=== PATIENT | male | born 1945 | race African-American/Black ===

== ENCOUNTER 2016-12-21 10:53 | Emergency (ER) | payer MEDICARE, OTHER ==
[~2016-12-21] VITALS: Ht 175.3 cm; Wt 78.0 kg
[~2016-12-21 10:53] MED LIST: ACETAMINOPHEN500 M3 ORAL; ASPIRIN; ASPIRIN325 M1 GT; AVODART0.5 MG ORAL; BACITRACIN1 APPLIC TOPIC; BACLOFEN10 MG ORAL; BENAZEPRIL HCL20 MG ORAL; BUPRENORPHINE HC8 MG SL; BUSPIRONE HCL15 MG ORAL; CATAPRES0.2 MG ORAL; CEPHALEXIN500 MG PO; CYCLOBENZAPRINE10 MG ORAL; DILAUDID2 MG ORAL; DIOVAN HCT 3201 EAC1 PO; DIOVAN HCT 3201 EACH ORAL; ENDOCET 10-3251 EACH PO; ERYTHROMYCIN3.5 GM BOTH EYES; FLOMAX0.4 MG ORAL; FLOMAX0.4 MG PO; GABAPENTIN800 MG PO; HYDRALAZINE HCL50 MG PO; HYDROCHLOROTHIA25 MG ORAL; KEFLEX500 MG ORAL; LIDOCREAM5 GM TP; LORAZEPAM0.5 MG ORAL; LOSARTAN POTAS100 MG ORAL; MAALOX SUSPENS355 ML ORAL; METHADONE HCL10 MG PO; METOPROLOL SUCC25 MG ORAL; MIRALAX17 G2 ORAL; MIRTAZAPINE45 MG ORAL; NEXIUM40 MG ORAL; NORCO 5/3251 TAB ORAL; NORVASC10 MG PO; OXYCODONE-ACET1 EACH PO; OXYCONTIN10 MG ORAL; OXYCONTIN20 MG ORAL; PERCOCET 10-321 EACH ORAL; PLAVIX75 MG ORAL; PROTONIX40 MG PO; SUCRALFATE1 GM PO; TRILEPTAL150 MG PO; ULTRAM50 MG ORAL; VALIUM5 MG ORAL; VITAMIN D250000 UNI1 PO; ZITHROMAX250 MG ORAL; ZOFRAN ODT4 MG ORAL; [UNRECOGNIZED DRUG - REMARK]
[2016-12-21] MEDS ORDERED: Ketorolac 30mg Inj IM ONE (11:30)
[2016-12-21 11:45] VITALS: BP 144/78
--- NOTE | 2016-12-21 14:04 | Emergency Room Report ---
History of Present Illness General Chief Complaint: Pain Source: Patient Present Illness HPI 71-year-old male presents to ED complaining of left-sided rib pain for 5 days. Denies recent trauma. States he is chronic history of pain to this area has been here multiple times in the past. Usually receives a Toradol shot and states the pain gets better. Patient states the pain as a 7/10, sharp, nonradiating. No other aggravating or relieving factors. Denies chest pain or shortness of breath. Denies any other associated symptoms Allergies: Coded Allergies: SULFA (SULFONAMIDE ANTIBIOTICS) (Unverified Allergy, Unknown, 07/27/12) MORPHINE (Verified Adverse Reaction, Intermediate, 07/27/12) EFFECTS PROSTATE Patient History Past Medical History: CHF, CVA/TIA Past Surgical History: none Pertinent Family History: none Social History: Denies: alcohol use, drug use, smoking Immunizations: UTD Reviewed Nursing Documentation: PMH: Agreed, PSxH: Agreed Nursing Documentation-PMH Hx Cardiac Problems: Yes - CHF, CHRONIC PAIN Hx Hypertension: Yes - left knee and foot surgery and pinch nerve Hx Cancer: Yes - PROSTATE Hx Gastrointestinal Problems: Yes 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 Review of Systems All Other Systems: negative except mentioned in HPI Physical Exam Vital Signs Date Time Temp Pulse Resp B/P Pulse Ox O2 Delivery O2 Flow Rate FiO2 12/21/16 11:07 97.9 70 20 155/84 96 Room Air Sp02 EP Interpretation: reviewed, normal General Appearance: no apparent distress, alert, GCS 15, non-toxic Head: normocephalic Eyes: bilateral eye PERRL, bilateral eye normal inspection ENT: normal ENT inspection Neck: normal inspection Respiratory: lungs clear, normal breath sounds, speaking full sentences, other - L sided rib pain Cardiovascular #1: regular rate, rhythm, no edema Gastrointestinal: normal inspection Rectal: deferred Genitourinary: no CVA tenderness Musculoskeletal: normal inspection Neurologic: alert, oriented x3, responsive, motor strength/tone normal, sensory intact, speech normal Psychiatric: normal inspection Skin: normal inspection Lymphatic: normal inspection Medical Decision Making Diagnostic Impression: Primary Impression: Chronic pain Qualified Codes: G89.29 - Other chronic pain ER Course 71-year-old male presents to ED complaining of left-sided rib pain. History of pain to this area Differential-chronic pain, muscle strain, opioid dependence Patient placed on stretcher. After initial history and physical I reviewed EMR. Patient has been here multiple times in the past for similar pain. Patient had been given Toradol with symptoms improving. Patient asked to be can have something stronger than Toradol today. Patient does have a pain management physician. I explained to the patient that he is under contract with that pain management physician and cannot receive narcotics elsewhere. Patient agrees to the Toradol Diagnosis-chronic pain Stable and discharged to home. Followup with PMD. Return to ED if symptoms recur or worsen Last Vital Signs Date Time Temp Pulse Resp B/P Pulse Ox O2 Delivery O2 Flow Rate FiO2 12/21/16 11:45 98.0 67 18 144/78 95 Room Air Status: improved Disposition: HOME, SELF-CARE Condition: Stable Referrals: NOT CHOSEN IPA/,REFERRING Patient Instructions: Chronic Pain STAN RIVERA M.D. Dec 21, 2016 14:04
== END 2016-12-21 11:47 | disposition home or self-care (01) ==
LOC: EMR 11:28
DX: G89.29 Other chronic pain (principal); Z88.6 Allergy status to analgesic agent; Z88.2 Allergy status to sulfonamides; Z86.73 Personal history of transient ischemic attack (TIA), and cerebral infarction without residual deficits; I50.9 Heart failure, unspecified; Z85.46 Personal history of malignant neoplasm of prostate; I10 Essential (primary) hypertension
CPT/HCPCS: 96372; 99282; J1885; 99281

== ENCOUNTER 2018-06-15 18:50 | Emergency (ER) | payer MEDICARE, OTHER ==
[~2018-06-15] VITALS: Ht 175.3 cm; Wt 78.5 kg
--- NOTE | 2018-06-15 19:30 | Emergency Room Report ---
History of Present Illness General Chief Complaint: Eye Problems Source: Patient, Medical Record Present Illness HPI Patient presents with eye itching and discomfort with d/c for 2 days. Some crusting in morning. No change in vision. Had been treated with erythromycin in the past and requesting this again. Denies glaucoma. Also with cough. No sig productive. No wheezing. Never smoker. Denies chest pain, NV. 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 Review of Systems Constitutional: Denies: fever Eye: Reports: see HPI ENT: Denies: throat pain, throat swelling Respiratory: Reports: see HPI Cardiovascular: Reports: see HPI Gastrointestinal: Reports: see HPI Skin: Denies: rash Neurological: Denies: headache Physical Exam Vital Signs Date Time Temp Pulse Resp B/P (MAP) Pulse Ox O2 Delivery O2 Flow Rate FiO2 06/15/18 19:04 98.2 95 18 167/87 95 Room Air 98.2 Sp02 EP Interpretation: reviewed, normal General Appearance: well appearing, no apparent distress Head: normocephalic, atraumatic Eyes: bilateral eye PERRL, bilateral eye lid inflammation, bilateral eye Scleral Injection, bilateral eye other ENT: hearing grossly normal, normal voice Neck: full range of motion, supple Respiratory: chest non-tender, lungs clear, normal breath sounds, no respiratory distress, speaking full sentences Cardiovascular #1: normal peripheral pulses Cardiovascular #2: 2+ radial (R) Gastrointestinal: normal inspection Musculoskeletal: no calf tenderness Neurologic: alert, normal gait, grossly normal Psychiatric: mood/affect normal Skin: no rash Medical Decision Making Diagnostic Impression: Primary Impression: Conjunctivitis Qualified Codes: H10.33 - Unspecified acute conjunctivitis, bilateral Additional Impression: Bronchitis ER Course Patient with eye irritation and crusting. DDx: viral vs bacterial conjunctivitis. Requesting antibiotics. Will give Rx. Also cough. Suggests concomitant etiology. Doubt pneumonia based on VS and exam. Will treat with cough syrup. Told to return if not doing better and to follow with his doctor. Patient stable for outpatient observation and treatment. Last Vital Signs Date Time Temp Pulse Resp B/P (MAP) Pulse Ox O2 Delivery O2 Flow Rate FiO2 06/15/18 19:44 98.2 95 16 167/87 95 Room Air Status: unchanged Disposition: HOME, SELF-CARE Condition: Stable Scripts Guaifenesin/Dextromethorphan (Guaifenesin Dm Syrup) 5 Ml Syrup 1 TSP ORAL Q6HR PRN for For Cough, #118 ML 0 Refills Prov: Jarod Gonzalez M.D. 06/15/18 Erythromycin Base (Erythromycin) 1 Gm Oint...g. 1 APPLIC OP Q6HR for 7 Days, GM Prov: Jarod Gonzalez M.D. 06/15/18 Jarod Gonzalez M.D. Jun 15, 2018 19:30
[2018-06-15] MEDS ORDERED: ERYTHROMYCIN1 G1 OP (19:33)
[2018-06-15] MEDS ORDERED: GUAIFENESIN DM118 M1 ORAL (19:33)
[2018-06-15 19:36] VITALS: BP 167/87
[2018-06-15 19:44] VITALS: BP 167/87
== END 2018-06-15 19:44 | disposition home or self-care (01) ==
LOC: EMR 19:43
DX: H10.33 Unspecified acute conjunctivitis, bilateral (principal); J40 Bronchitis, not specified as acute or chronic; I11.0 Hypertensive heart disease with heart failure; I50.9 Heart failure, unspecified; I69.354 Hemiplegia and hemiparesis following cerebral infarction affecting left non-dominant side; Z85.46 Personal history of malignant neoplasm of prostate
CPT/HCPCS: 99283

== ENCOUNTER 2018-07-05 18:07 | Emergency (ER) | payer MEDICARE, OTHER ==
[~2018-07-05] VITALS: Ht 175.3 cm; Wt 78.0 kg
[~2018-07-05 18:07] MED LIST changes: +ERYTHROMYCIN1 G1 OP; +GUAIFENESIN DM118 M1 ORAL
--- NOTE | 2018-07-05 19:17 | Emergency Room Report ---
History of Present Illness General Chief Complaint: General Complaint Source: Patient, Medical Record Present Illness HPI 73-year-old male presents to the emergency department complaining of noting black stools this a.m. Patient reports history of stomach ulcers. Patient reports intermittent 8 out of 10 in severity epigastric burning pain. Patient denies bright red blood in the stool, fevers, chills, abdominal tenderness, nausea, vomiting or constipation. Denies CP, Palpitations, LOC, AMS, dizziness, Changes in Vision, Sensation, paresthesias, or a sudden severe headache. 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 Review of Systems All Other Systems: negative except mentioned in HPI Physical Exam Vital Signs Date Time Temp Pulse Resp B/P (MAP) Pulse Ox O2 Delivery O2 Flow Rate FiO2 07/05/18 18:15 98.1 85 18 137/82 96 Room Air 98.1 Sp02 EP Interpretation: reviewed, normal General Appearance: no apparent distress, alert, GCS 15, non-toxic, thin Head: normocephalic, atraumatic Eyes: bilateral eye normal inspection, bilateral eye PERRL ENT: hearing grossly normal, normal voice Neck: full range of motion Respiratory: lungs clear, normal breath sounds, speaking full sentences Cardiovascular #1: regular rate, rhythm Gastrointestinal: normal bowel sounds, non tender, soft Rectal: deferred Genitourinary: normal inspection, no CVA tenderness Musculoskeletal: back normal, gait/station normal, normal range of motion, non- tender Neurologic: alert, oriented x3, responsive, motor strength/tone normal, sensory intact, normal gait, speech normal, grossly normal Psychiatric: judgement/insight normal Skin: normal color, no rash, warm/dry, well hydrated Medical Decision Making PA Attestation Dr. Alvarado is my supervising Physician whom patient management has been discussed with. Diagnostic Impression: Primary Impression: History of peptic ulcer Additional Impression: Heme positive stool ER Course 73-year-old male presents to the emergency department complaining of noting black stools this a.m. Patient reports history of stomach ulcers. Patient reports intermittent 8 out of 10 in severity epigastric burning pain. Patient denies bright red blood in the stool, fevers, chills, abdominal tenderness, nausea, vomiting or constipation. Denies CP, Palpitations, LOC, AMS, dizziness, Changes in Vision, Sensation, paresthesias, or a sudden severe headache. Ddx considered but are not limited to peptic ulcer disease, upper GI bleed, lower GI bleed, anemia, gastritis. Vital signs: are WNL, pt. is afebrile H&PE are most consistent with heme positive stool there was scant bright red blood on sample taken. To was not dark in appearance. ORDERS: none required at this time, the diagnosis is clinical ED INTERVENTIONS: -Pepcid by mouth Patient states he does not want to stay or be admitted he also states that he is not sure if he wants to wait around for labs he is asking if he he could come back tomorrow and receive his results. I discussed with this patient that if he feels that his symptoms are not emergent in condition and that he is able to follow-up tomorrow that this should be evaluated as an outpatient by his primary care provider. I also d/w pt. the results of FOB testing. -Pt. is NAD, non-toxic in appearance, normal vital signs. given HPI of one episode of dark stool, and FOB testing results my suspicion is very low for significant GI bleed at this time. DISCHARGE: At this time pt. is stable for d/c to home. Will provide printed patient care instructions, and any necessary prescriptions. Care plan and follow up instructions have been discussed with the patient prior to discharge. Last Vital Signs Date Time Temp Pulse Resp B/P (MAP) Pulse Ox O2 Delivery O2 Flow Rate FiO2 07/05/18 18:15 98.1 85 18 137/82 96 Room Air 98.1 Disposition: HOME, SELF-CARE Condition: Stable Scripts Omeprazole Magnesium (PRILOSEC OTC) 20 Mg Tablet. 20 MG ORAL DAILY, #30 TAB Prov: Tia Gresham 07/05/18 Patient Instructions: Food Choices for Peptic Ulcer Disease, Peptic Ulcer, Easy -to-Read Additional Instructions: Take medications as directed. Follow up with a Primary Care Provider within 3 days, even if your symptoms have resolved. --Please review list of primary care clinics, if you do not already have a primary care provider Return sooner to ED if new symptoms occur, or current symptoms become worse. - Please note that this Emergency Department Report was dictated using [employer] technology software, occasionally this can lead to erroneous entry secondary to interpretation by the dictation equipment. Tia Gresham Jul 05, 2018 19:17
[2018-07-05] MEDS ORDERED: PRILOSEC OTC20 MG ORAL (19:18)
[2018-07-05 19:30] VITALS: BP 129/79
[2018-07-05 19:43] VITALS: BP 129/79
== END 2018-07-05 19:38 | disposition home or self-care (01) ==
LOC: EMR 18:45
DX: K92.1 Melena (principal); I69.859 Hemiplegia and hemiparesis following other cerebrovascular disease affecting unspecified side; Z87.11 Personal history of peptic ulcer disease; Z85.46 Personal history of malignant neoplasm of prostate; Z88.6 Allergy status to analgesic agent; Z88.2 Allergy status to sulfonamides
CPT/HCPCS: 99282

== ENCOUNTER 2018-11-23 15:54 | Emergency (ER) | payer MEDICARE, OTHER ==
[~2018-11-23] VITALS: Ht 175.3 cm; Wt 77.1 kg
[~2018-11-23 15:54] MED LIST changes: +PRILOSEC OTC20 MG ORAL
--- NOTE | 2018-11-23 16:51 | NUR ---
ED Nurse Note: Pt states that all he needs is pain med refill. He states that he is unable to go see pain specialist. Pt is AAox4 respirations are even and unlabored.
[2018-11-23 16:53] VITALS: BP 123/83
--- NOTE | 2018-11-23 16:57 | Emergency Room Report ---
History of Present Illness General Chief Complaint: Medication Refill Source: Patient, Medical Record Present Illness HPI 73-year-old male presents to the emergency department requesting medication refill for for his chronic pain medications. Patient reports chronic left- sided rib and left shoulder pain. 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 Patient states that he takes amitriptyline, diclofenac, tizanidine, tramadol. He denies recent trauma or fall he denies fevers, chills or any changes in his symptoms. Pt. reports hx of cancer. 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 Review of Systems All Other Systems: negative except mentioned in HPI Physical Exam Vital Signs Date Time Temp Pulse Resp B/P (MAP) Pulse Ox O2 Delivery O2 Flow Rate FiO2 11/23/18 16:09 97.9 84 19 123/83 94 Sp02 EP Interpretation: reviewed, normal General Appearance: no apparent distress, alert, GCS 15, non-toxic Head: normocephalic, atraumatic Eyes: bilateral eye normal inspection, bilateral eye PERRL ENT: hearing grossly normal, normal voice Neck: full range of motion, no bony tend Respiratory: lungs clear, normal breath sounds, no wheezing, speaking full sentences Cardiovascular #1: regular rate, rhythm, normal capillary refill Musculoskeletal: back normal, gait/station normal, normal range of motion Neurologic: alert, oriented x3, responsive, motor strength/tone normal, sensory intact, speech normal, grossly normal Psychiatric: judgement/insight normal Skin: normal color, no rash, warm/dry, well hydrated Lymphatic: no adenopathy Medical Decision Making PA Attestation Dr. Hodges is my supervising Physician whom patient management has been discussed with. Diagnostic Impression: Primary Impression: Encounter for medication refill ER Course 73-year-old male presents to the emergency department requesting medication refill for for his chronic pain medications. Patient reports chronic left- sided rib and left shoulder pain. 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 Patient states that he takes amitriptyline, diclofenac, tizanidine, tramadol. He denies recent trauma or fall he denies fevers, chills or any changes in his symptoms. Pt. reports hx of cancer. Pt denies pain at this time. Ddx considered but are not limited to: acute psychosis, danger to self or others , drug seeking, OD, urgent need for medication refill request, non -urgent medication refill request just to name a few. Vital signs: are WNL, pt. is afebrile H&PE are most consistent with non- urgent need for medication refill. Pt. does not have evidence to suggest high probability of danger to self or others. pt. is Alert, Oriented, and able to make decisions. ORDERS: none required at this time, the diagnosis is clinical ED INTERVENTIONS: None required at this time. -I do not identify an emergent condition at this time. With current presentation , pt. is stable for close outpatient follow up and conservative treatment. D/ w pt. to return promptly to ED with worsening or new symptoms.- Pt. verbalizes' understanding and agreement with proposed treatment plan. DISCHARGE: At this time pt. is stable for d/c to home. Will provide printed patient care instructions, and any necessary prescriptions. Care plan and follow up instructions have been discussed with the patient prior to discharge. Last Vital Signs Date Time Temp Pulse Resp B/P (MAP) Pulse Ox O2 Delivery O2 Flow Rate FiO2 11/23/18 16:53 97.9 80 19 123/83 94 Disposition: HOME, SELF-CARE Condition: Stable Scripts Tramadol Hcl* (ULTRAM*) 50 Mg Tablet 50 MG ORAL Q6H PRN for For Pain, #7 TAB 0 Refills Prov: Tia Gresham 11/23/18 Tizanidine Hcl* (ZANAFLEX*) 4 Mg Tablet 4 MG ORAL THREE TIMES A DAY, #30 TAB 0 Refills Prov: Tia Gresham 11/23/18 Amitriptyline Hcl* (AMITRIPTYLINE HCL*) 25 Mg Tablet 25 MG ORAL BEDTIME, #30 TAB Prov: Tia Gresham 11/23/18 Diclofenac Sod* (VOLTAREN*) 75 Mg Tablet. 75 MG ORAL THREE TIMES A DAY, #30 TAB Prov: Tia Gresham 11/23/18 Patient Instructions: Medicine Refill at the Emergency Department Additional Instructions: Take medications as directed. Follow up with a Primary Care Provider in 3-5 days, even if your symptoms have resolved. --Please review list of primary care clinics, if you do not already have a primary care provider Return sooner to ED if new symptoms occur, or current symptoms become worse. Do not drink alcohol, drive, or operate heavy machinery while taking Tramadol as this may cause drowsiness. - Please note that this Emergency Department Report was dictated using [employer] telecommunications technology software, occasionally this can lead to erroneous entry secondary to interpretation by the dictation equipment. Tia Gresham Nov 23, 2018 16:57
[2018-11-23] MEDS ORDERED: DICLOFENAC SODI75 MG ORAL (16:59)
[2018-11-23] MEDS ORDERED: AMITRIPTYLINE H25 MG ORAL (16:59)
[2018-11-23] MEDS ORDERED: TIZANIDINE HCL4 MG ORAL (16:59)
[2018-11-23] MEDS ORDERED: TRAMADOL HCL50 MG ORAL (16:59)
[2018-11-23 17:12] VITALS: BP 123/83
== END 2018-11-23 17:12 | disposition home or self-care (01) ==
LOC: EMR 16:50
DX: Z76.0 Encounter for issue of repeat prescription (principal); G89.29 Other chronic pain; I11.0 Hypertensive heart disease with heart failure; I50.9 Heart failure, unspecified; Z85.46 Personal history of malignant neoplasm of prostate; I69.354 Hemiplegia and hemiparesis following cerebral infarction affecting left non-dominant side; Z88.2 Allergy status to sulfonamides; Z88.5 Allergy status to narcotic agent
CPT/HCPCS: 99282

== ENCOUNTER 2018-11-30 00:10 | Emergency (ER) | payer MEDICARE, OTHER ==
[~2018-11-30] VITALS: Ht 175.3 cm; Wt 77.1 kg
[~2018-11-30 00:10] MED LIST changes: +AMITRIPTYLINE H25 MG ORAL; +DICLOFENAC SODI75 MG ORAL; +TIZANIDINE HCL4 MG ORAL; +TRAMADOL HCL50 MG ORAL
[2018-11-30] MEDS ORDERED: ACETAMINOPHEN-1 EAC4 ORAL (00:25)
[2018-11-30 00:50] VITALS: BP 116/77
--- NOTE | 2018-11-30 00:50 | NUR ---
ED Nurse Note: RECIEVED PT ON DIANA FROM HOME, HERE WITH C/O SEVERE LEFT FLANK PAIN, PAIN IS CHRONIC, PT TAKES NARCOTICS AT HOME AND STATES THEY ARE NOT WORKING AND PAIN IS AT 9/10, TP IS AMBULATING WITH CANE, DENIES INJURY OR ANY OTHER DISCOMFORTS, NO CP, NO SOB, WILL RESUME CARE ORDERED.
[2018-11-30] MEDS ORDERED: Ketorolac 60mg Inj IM ONE (01:00)
--- NOTE | 2018-11-30 01:10 | Emergency Room Report ---
History of Present Illness General Chief Complaint: Pain Source: Patient, Medical Record Present Illness HPI This is 73-year-old male with history of chronic pain. He has history of chronic left sided rib pain. He said unknown etiology. He presents with chief complaint of exacerbation of his chronic pain. He was here last week. For the same. Pain is 9 out of 10. No nausea no vomiting. No trauma. His pain medication not helping. Denies any other complaint. Allergies: Coded Allergies: SULFA (SULFONAMIDE ANTIBIOTICS) (Unverified Allergy, Unknown, 07/27/12) MORPHINE (Verified Adverse Reaction, Intermediate, 07/27/12) EFFECTS PROSTATE Patient History Past Medical History: see triage record, old chart reviewed Past Surgical History: other Pertinent Family History: none Social History: Denies: smoking Immunizations: other Reviewed Nursing Documentation: PMH: Agreed; PSxH: Agreed Nursing Documentation-PMH Hx Cardiac Problems: Yes - CHF, CHRONIC PAIN Hx Hypertension: Yes - left knee and foot surgery and pinch nerve Hx Cancer: Yes - PROSTATE Hx Gastrointestinal Problems: Yes 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 Review of Systems Eye: Denies: eye pain, blurred vision ENT: Denies: ear pain, nose congestion, throat swelling Respiratory: Denies: cough, shortness of breath Cardiovascular: Denies: chest pain, palpitations Gastrointestinal: Denies: abdominal pain, diarrhea, nausea, vomiting Musculoskeletal: Denies: back pain, joint pain Skin: Denies: rash Neurological: Denies: headache, numbness Endocrine: Denies: increased thirst, increased urine Hematologic/Lymphatic: Denies: easy bruising All Other Systems: negative except mentioned in HPI Physical Exam Vital Signs Date Time Temp Pulse Resp B/P (MAP) Pulse Ox O2 Delivery O2 Flow Rate FiO2 11/30/18 00:14 98.2 82 16 116/77 96 Room Air vitals normal Sp02 EP Interpretation: reviewed, normal General Appearance: well appearing, no apparent distress, alert Head: normocephalic, atraumatic Eyes: bilateral eye PERRL, bilateral eye EOMI ENT: hearing grossly normal, normal pharynx Neck: full range of motion, supple, no meningismus Respiratory: chest non-tender, lungs clear, normal breath sounds Cardiovascular #1: regular rate, rhythm, no murmur Gastrointestinal: normal bowel sounds, non tender, no mass, no organomegaly, no bruit, non-distended Musculoskeletal: back normal, gait/station normal, normal range of motion, other - Left-sided pain Psychiatric: mood/affect normal Skin: warm/dry Medical Decision Making Diagnostic Impression: Primary Impression: acute exacerbation of chronic pain ER Course Follow-up with your doctor in 7 days. Return if worse. Last Vital Signs Date Time Temp Pulse Resp B/P (MAP) Pulse Ox O2 Delivery O2 Flow Rate FiO2 11/30/18 00:14 98.2 82 16 116/77 96 Room Air Status: improved Disposition: HOME, SELF-CARE Condition: Stable Additional Instructions: Follow-up with your pain doctor in 7 days. Return if worse. Steve Maza MD Nov 30, 2018 01:10
[2018-11-30 01:45] VITALS: BP 128/69
--- NOTE | 2018-11-30 01:50 | NUR ---
ED Nurse Note: PT BEING D/C TO HOME, PT STATES MEDS NOT EFFECTIVE AND PT AMBULATING IN DEPARTMENT ASKING EVERYONE TO HELP HIM WITH HIS PAIN, SAT AND EXPLAINED MD INSTRUCTIONS AND F/U INFO, PT CONTINUES TO COMPLAIN, PT D/C WITH SPOUSE AND CANE, NO SOB NOTED, DENIES CP, PT GIVEN F/U INFO, AFTER CARE INSTRUCTIONS AND RE-VERBALIZES PROPER MEDICATION ADMINISTRATION FOR MEDS AT HOME.
== END 2018-11-30 01:50 | disposition home or self-care (01) ==
LOC: EMR 00:30
DX: R07.81 Pleurodynia (principal); G89.29 Other chronic pain; I69.354 Hemiplegia and hemiparesis following cerebral infarction affecting left non-dominant side; I11.0 Hypertensive heart disease with heart failure; I50.9 Heart failure, unspecified; Z85.46 Personal history of malignant neoplasm of prostate
CPT/HCPCS: 96372; 99283

== ENCOUNTER 2019-02-19 05:52 | Emergency (ER) | payer MEDICARE, OTHER ==
[~2019-02-19] VITALS: Ht 177.8 cm; Wt 77.1 kg
[~2019-02-19 05:52] MED LIST changes: +ACETAMINOPHEN-1 EAC4 ORAL
[2019-02-19] MEDS ORDERED: ASPIR 8181 MG ORAL (06:04)
[2019-02-19] MEDS ORDERED: AMLODIPINE BESY10 MG ORAL (06:04)
[2019-02-19] MEDS ORDERED: HYDRALAZINE HC100 MG ORAL (06:04)
[2019-02-19] MEDS ORDERED: VITAMIN D1000 UNI1 ORAL (06:04)
[2019-02-19 06:09] VITALS: BP 158/101
--- NOTE | 2019-02-19 06:10 | NUR ---
ED Nurse Note: Patient walked in to ER from home with steady gait c/o left shoulder pain 04/26. AAO x4, VSS at this time, skin is dry, intact, warm to touch.
[2019-02-19] MEDS ORDERED: LIDOCAINE700 M1 TP (06:50)
[2019-02-19] MEDS ORDERED: ACETAMINOPHEN650 M3 ORAL (06:50)
[2019-02-19] MEDS ORDERED: Acetaminophen 500mg (ES) tab ORAL ONE (07:00)
[2019-02-19 07:11] VITALS: BP 158/101
--- NOTE | 2019-02-19 07:12 | NUR ---
ED Nurse Note: Pt cleared by health care Provider for discharge. DC instructions/prescription was given and explained to pt and verbalized understanding of teachings. All medical deviecs such as ID band removed. Pt is AAO x4, ambulatory and left with all personal belongings.
--- NOTE | 2019-02-21 18:47 | Emergency Room Report ---
History of Present Illness General Chief Complaint: Pain Source: Patient Present Illness HPI Patient is a 73-year-old male presented after increased generalized pain. Patient reports having prior history of chronic pain to his joints. He reports having worsened pain over the past few days. He denies any recent trauma. He reports having a prior history of chronic arthritis. he denies any fever or weight loss. Patient reportedly had been taking multiple medications and states that only Dilaudid takes away his pain. 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 Review of Systems All Other Systems: negative except mentioned in HPI Physical Exam Vital Signs Date Time Temp Pulse Resp B/P (MAP) Pulse Ox O2 Delivery O2 Flow Rate FiO2 02/19/19 05:59 98.1 65 14 93 Room Air 02/19/19 06:09 158/101 Sp02 EP Interpretation: reviewed, normal General Appearance: normal inspection, well appearing, no apparent distress, alert, GCS 15, non-toxic Head: atraumatic ENT: normal ENT inspection, hearing grossly normal, normal voice Neck: normal inspection, full range of motion, supple, no bony tend Respiratory: normal inspection, lungs clear, normal breath sounds, no respiratory distress, no retraction, no wheezing Cardiovascular #1: regular rate, rhythm, no edema Gastrointestinal: normal inspection, normal bowel sounds, non tender, soft, no guarding, no hernia Genitourinary: no CVA tenderness Musculoskeletal: normal inspection, back normal, decreased range of motion, other - antalgic gait Neurologic: normal inspection, alert, oriented x3, responsive, cnc maintenance technician III-XII nml as tested, speech normal Psychiatric: normal inspection, judgement/insight normal, mood/affect normal Skin: normal inspection, normal color, no rash Medical Decision Making Diagnostic Impression: Primary Impression: acute exacerbation of chronic pain Additional Impression: Opiate dependence ER Course Patient presented for chronic pain exacerbation. Differential diagnosis include was not limited to arthritis, fracture, medication withdrawal among others. Patient does not appear to have any evidence of acute need for narcotic pain medications. Patient noted to be ambulatory without assistance. Patient was given nonnarcotic pain medications. Patient was advised to follow- up with his primary care for physical therapy. Patient was advised to return if he began having any numbness or weakness or other concerns. Last Vital Signs Date Time Temp Pulse Resp B/P (MAP) Pulse Ox O2 Delivery O2 Flow Rate FiO2 02/19/19 07:11 98.1 14 158/101 93 Room Air 02/19/19 05:59 65 Status: improved Disposition: HOME, SELF-CARE Condition: Stable Scripts Acetaminophen (ACETAMINOPHEN ER) 650 Mg Tablet.er 650 MG ORAL Q8H, #30 TAB Prov: Jose Alvarado MD 02/19/19 Lidocaine (Lidocaine) 1 Each Adh..patch 5 % TP DAILY, #30 PATCH Prov: Jose Alvarado MD 02/19/19 Referrals: Jarod Pascual MD (PCP) Patient Instructions: Shoulder Pain Additional Instructions: Follow up with physical therapy and your primary care physician. Avoid taking narcotic pain medications for chronic pain. Jose Alvarado MD February 21, 2019 18:47
--- NOTE | 2019-02-22 14:45 | Cardiology Report ---
APPROVED REPORT EKG Measurement Heart [id number] Sinus bradycardia with sinus arrhythmia with 1st degree AV block Otherwise normal ECG
== END 2019-02-19 07:50 | disposition home or self-care (01) ==
LOC: EMR 07:05
DX: G89.29 Other chronic pain (principal); F11.20 Opioid dependence, uncomplicated; M19.90 Unspecified osteoarthritis, unspecified site; Z88.2 Allergy status to sulfonamides; Z88.6 Allergy status to analgesic agent; I11.0 Hypertensive heart disease with heart failure; I50.9 Heart failure, unspecified; Z85.46 Personal history of malignant neoplasm of prostate; G81.94 Hemiplegia, unspecified affecting left nondominant side
CPT/HCPCS: 93005; 99283

== ENCOUNTER 2019-05-30 22:00 | Emergency (ER) | payer MEDICARE, OTHER ==
[~2019-05-30] VITALS: Ht 175.3 cm; Wt 74.8 kg
[~2019-05-30 22:00] MED LIST changes: +ACETAMINOPHEN650 M3 ORAL; +AMLODIPINE BESY10 MG ORAL; +ASPIR 8181 MG ORAL; +HYDRALAZINE HC100 MG ORAL; +LIDOCAINE700 M1 TP; +VITAMIN D1000 UNI1 ORAL
[2019-05-30 22:03] VITALS: BP 137/83
--- NOTE | 2019-05-30 22:03 | NUR ---
ED Nurse Note: PT AMBUATLED TO ED WITH CANE C/O LEFT FLANK PAIN X 1 DAY. PT STATES THAT HE WAS JUST SITTING AT HOME WHEN PAIN OCCURRED. PT DENEIS N/V/D. PER PT "ALL I NEED IS 4 MG OF DIALUDID RIGHT NOW SO MY PAIN WILL GO AWAY". PT PLACED ON MONITOR AND AND GOWN. BED AT LOWEST POSITION X 2 SIDE RAILS.
--- NOTE | 2019-05-30 22:24 | Emergency Room Report ---
History of Present Illness General Chief Complaint: Back Pain-No Injury Source: Patient Present Illness HPI Patient is a 74-year-old male who presents for increased low back discomfort as well as left lower abdominal pain. He reports having pain for several months. This is been constant in nature. He had previous been noted to have been in pain management. Patient had reported having worsening pain to his joints as well as to his left lower abdomen. He reports having some increased urinary hesitancy. 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 Review of Systems All Other Systems: negative except mentioned in HPI Physical Exam Vital Signs Date Time Temp Pulse Resp B/P (MAP) Pulse Ox O2 Delivery O2 Flow Rate FiO2 05/30/19 22:03 97.9 91 18 146/83 (104) 94 Room Air Sp02 EP Interpretation: reviewed, normal General Appearance: normal inspection, well appearing, no apparent distress, alert, GCS 15, Chronically Ill Head: atraumatic ENT: normal ENT inspection, hearing grossly normal, normal voice Neck: normal inspection, full range of motion, supple, no bony tend Respiratory: normal inspection, lungs clear, normal breath sounds, no respiratory distress, no retraction, no wheezing Cardiovascular #1: regular rate, rhythm, no edema Gastrointestinal: normal inspection, normal bowel sounds, non tender, soft, no guarding, no hernia Genitourinary: no CVA tenderness Musculoskeletal: normal inspection, back normal, decreased range of motion Neurologic: normal inspection, alert, oriented x3, responsive, community outreach worker III-XII nml as tested, speech normal, abnormal gait - antalgic Psychiatric: normal inspection, judgement/insight normal, mood/affect normal Medical Decision Making Diagnostic Impression: Primary Impression: Chronic pain Additional Impression: Opiate dependence ER Course Patient presented for left lower abdominal pain. Differential diagnosis include was not limited to kidney stone, urinary tract infection, fecal impaction, diverticulitis among others. CT imaging of the abdomen pelvis was ordered to patient's location of pain. He initially requested 4 mg of Dilaudid which I do not believe is reasonable given the patient's chronicity of symptoms. Patient was given IM Toradol for pain. Patient was noted to have CT of the abdomen pelvis which showed some retained stool as well as some fluid- filled bowel. Patient was given enema. Patient was advised to follow-up with his primary care physician as well as pain management. Labs Test 05/30/19 22:18 Urine Color Yellow Urine Appearance Clear Urine pH 5 (4.5-8.0) Urine Specific [place] 1.015 (1.005-1.035) Urine Protein 4+ (NEGATIVE) Urine Glucose (UA) Negative (NEGATIVE) Urine Ketones Negative (NEGATIVE) Urine Blood Negative (NEGATIVE) Urine Nitrite Negative (NEGATIVE) Urine Bilirubin Negative (NEGATIVE) Urine Urobilinogen Normal MG/DL (0.0-1.0) Urine Leukocyte Esterase Negative (NEGATIVE) Urine RBC 0-2 /HPF (0 - 0) Urine WBC 0-2 /HPF (0 - 0) Urine Squamous Epithelial Cells None /LPF (NONE/OCC) Urine Bacteria Few /HPF (NONE) Last Vital Signs Date Time Temp Pulse Resp B/P (MAP) Pulse Ox O2 Delivery O2 Flow Rate FiO2 05/30/19 22:03 97.9 99 16 137/83 98 Room Air Status: improved Disposition: HOME, SELF-CARE Condition: Stable Jose Alvarado MD May 30, 2019 22:24
[2019-05-30] MEDS ORDERED: Ketorolac 60mg Inj IM ONE (22:30)
--- NOTE | 2019-05-30 22:35 | NUR ---
ED Nurse Note: PT WENT DOWN TO CT
[2019-05-30 22:48] LABS: APPEARANCE,URINE CLEAR; BILIRUBIN, URINE NEGATIVE (NEGATIVE); GLUCOSE, URINE (UA) NEGATIVE (NEGATIVE); KETONES,URINE NEGATIVE (NEGATIVE); LEUKOCYTE ESTERASE ,URINE NEGATIVE (NEGATIVE); NITRITE,URINE NEGATIVE (NEGATIVE); PH,URINE 5 (4.5-8.0); PROTEIN,URINE 4+ (NEGATIVE); UROBILINOGEN,URINE NORMAL MG/DL (0.0-1.0)
[2019-05-30 22:50] LABS: COLOR,URINE YELLOW
--- NOTE | 2019-05-30 23:10 | Diagnostic Imaging Report ---
Indication: Abdominal pain Technique: Continuous helical transaxial imaging of the abdomen and pelvis was obtained from the lung bases to the pubic symphysis. No intravenous contrast was administered. Coronal 2-D reformats were also obtained. Automatic Exposure Control was utilized. Total Dose length Product (DLP): 711.[address] Dose Index Volume (CTDIvol): 12.3 mGy Comparison: none Findings: The lung bases demonstrate the scattered reticular densities likely representing scarring. The heart is enlarged. There is nodularity of the liver. Borderline splenomegaly measuring 13 cm noted. There are calcifications within the liver and spleen consistent with old granulomatous disease. There is no adrenal mass. Kidneys are slightly lobulated. There is suggestion of a right renal cyst or mass given a small hypodensity which is nonspecific by noncontrast imaging. The gallbladder is noted and grossly unremarkable. There is a small milligrams hernia containing fat. The appendix is normal. There is a moderate degree of fecal retention within the colon. There is a right inguinal hernia containing fat. There is thickening of the wall the urinary bladder. Prostate gland is enlarged measuring approximately 5.5 x 6.4 x 6.8 cm. IMPRESSION: Suspicion of cirrhosis of liver with surface nodularity. Borderline splenomegaly. Old granulomatous disease Prostate hypertrophyThickened. Urinary bladder wall (chronic cystitis) may be associated with this. Other incidental findings as above. [facility] has communicated the preliminary results to the Emergency Department. Their findings are largely concordant with this report. The CT scanner at [facility] is accredited by the [employer] and the scans are performed using dose optimization techniques as appropriate to a performed exam including Automatic Exposure control.
[2019-05-31] MEDS ORDERED: Acetaminophen 500mg (ES) tab ORAL ONE
[2019-05-31] MEDS ORDERED: Fleet's Enema 133ml RECTAL ONE
[2019-05-31 00:02] VITALS: BP 137/83
--- NOTE | 2019-05-31 00:10 | NUR ---
ED Nurse Note: pt tolerated enema well. 1 bowel movement noted.
[2019-05-31] MEDS ORDERED: Dicyclomine HCl 10mg/5ml oral soln ORAL ONE (00:45)
[2019-05-31 00:49] VITALS: BP 145/87
--- NOTE | 2019-05-31 00:50 | NUR ---
ER DISCHARGE NOTE: Patient is cleared to be discharged per ERMD, pt is aox4, on room air, with stable vital signs. pt was given dc instructions, pt was able to verbalize understanding, pt id band removed. pt is able to ambulate with steady gait. pt took all belongings.
== END 2019-05-31 00:50 | disposition home or self-care (01) ==
LOC: EMR 22:25
DX: M54.5 Low back pain (principal); G89.29 Other chronic pain; F11.20 Opioid dependence, uncomplicated; R10.32 Left lower quadrant pain; Z88.2 Allergy status to sulfonamides; Z88.6 Allergy status to analgesic agent; I50.9 Heart failure, unspecified; I11.0 Hypertensive heart disease with heart failure; Z85.46 Personal history of malignant neoplasm of prostate; Z86.73 Personal history of transient ischemic attack (TIA), and cerebral infarction without residual deficits
CPT/HCPCS: 74176; 81003; 96372; 99284

== ENCOUNTER 2019-07-17 18:23 | Emergency (ER) | payer MEDICARE, OTHER ==
[~2019-07-17] VITALS: Ht 175.3 cm; Wt 74.8 kg
--- NOTE | 2019-07-17 18:38 | NUR ---
ED Nurse Note: Walk-in patient reports pain at left shoulder, no history of trauma. Patient has elevated blood pressure at this time, anti-hypertensive mediation due at 2100. Will continue to monitor.
[2019-07-17 18:44] VITALS: BP 174/92
--- NOTE | 2019-07-17 18:59 | NUR ---
ED Nurse Note: Patient provided with a pillow per request of
[2019-07-17] MEDS ORDERED: HYDROcodone/Acetamin 5/325 tab ORAL ONE (19:00)
[2019-07-17] MEDS ORDERED: OMEPRAZOLE20 M2 ORAL (19:04)
[2019-07-17] MEDS ORDERED: NORCO 5-325 TA1 EACH ORAL (19:04)
--- NOTE | 2019-07-17 19:20 | NUR ---
ED Nurse Note: Patient provided with two blankets per request of .
[2019-07-17] MEDS ORDERED: VOLTAREN100 G1 TP (20:03)
--- NOTE | 2019-07-17 20:10 | NUR ---
ED Nurse Note: volterent gel obtained from pharmacy. Topical applied to site. Patient tolerated well. will continue to monitor.
[2019-07-17] MEDS ORDERED: Diclofenac 1% Gel 100gm TOPIC ONE (20:15)
[2019-07-17 20:47] VITALS: BP 174/92
--- NOTE | 2019-07-17 20:47 | NUR ---
ED Nurse Note: Patient cleared for discharge, Patient verbalized understanding of discharge instructions, ID band removed. Patient departed with all belongings accompanied by his .
[2019-07-17] MEDS ORDERED: Diclofenac 1% Gel 100gm TOPIC SCH (21:00)
--- NOTE | 2019-07-18 14:29 | Diagnostic Imaging Report ---
Indication: Chest pain Technique: One view of the chest Comparison: 11/04/2014 Findings: Less optimal inspiration currently. Lungs and pleural spaces are clear heart size is normal. No significant interim change. Impression: Negative
--- NOTE | 2019-07-19 07:54 | Emergency Room Report ---
History of Present Illness General Chief Complaint: Pain Source: Patient Present Illness HPI Patient is a 74-year-old male presents after increased left-sided shoulder pain. Patient had a prior history of polyarticular arthritis. He had been noted to have multiple prior visits for pain exacerbations in the past. He had previously been seen by pain management. Patient reports having increased left- sided scapular pain. This is worsened with movement. He denies any associated chest pain or shortness of breath. He had previously been on narcotic pain medication. He denies any increased leg swelling or discomfort. He does report having some joint pain to his knees as well as to his low back. No recent fever. 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 Review of Systems All Other Systems: negative except mentioned in HPI Physical Exam Vital Signs Date Time Temp Pulse Resp B/P (MAP) Pulse Ox O2 Delivery O2 Flow Rate FiO2 07/17/19 18:28 98.4 89 18 174/92 (119) 97 Room Air Sp02 EP Interpretation: reviewed, normal General Appearance: normal inspection, well appearing, alert, Chronically Ill Head: atraumatic ENT: normal ENT inspection, hearing grossly normal, normal voice Neck: normal inspection, full range of motion, supple, no bony tend Respiratory: normal inspection, lungs clear, normal breath sounds, no respiratory distress, no retraction, no wheezing Cardiovascular #1: regular rate, rhythm, no edema Gastrointestinal: normal inspection, normal bowel sounds, non tender, soft, no guarding, no hernia Genitourinary: no CVA tenderness Musculoskeletal: decreased range of motion, other - left infrascapular tenderness, no tenderness to deltoid , decreased ROM Neurologic: normal inspection, alert, responsive, speech normal Psychiatric: normal inspection, judgement/insight normal, mood/affect normal Medical Decision Making Diagnostic Impression: Primary Impression: chronic pain Additional Impression: Arthritis ER Course Patient presented for left shoulder pain. Differential diagnoses included was not limited to referred pain, fracture, dislocation, a.c. separation, septic joint. EKG interpreted by me showed normal sinus rhythm without acute ST or T wave changes. Chest x-ray one view interpreted by me showed normal cardiac size without evident infiltrate. Patient was noted to have what appears to be musculoskeletal pain. He was given pain medications. He was advised to follow- up with his pain management doctor for further evaluation and treatment. Patient was advised to return if worse. Last Vital Signs Date Time Temp Pulse Resp B/P (MAP) Pulse Ox O2 Delivery O2 Flow Rate FiO2 07/17/19 20:47 98.4 78 18 174/92 97 Room Air Status: improved Disposition: HOME, SELF-CARE Condition: Stable Scripts Diclofenac Sodium (VOLTAREN) 100 Gm Gel..gram. 5 GM TP DAILY, #100 GM Prov: Jose Alvarado MD 07/17/19 Hydrocodone Bit/Acetaminophen 5-325* (NORCO 5-325*) 1 Each Tablet 1 TAB ORAL Q6H PRN for For Pain, #10 TAB 0 Refills Prov: Jose Alvarado MD 07/17/19 Omeprazole (OMEPRAZOLE) 20 Mg Capsule.dr 20 MG ORAL DAILY, #30 CAP Prov: Jose Alvarado MD 07/17/19 Referrals: Jarod Pascual MD (PCP) Patient Instructions: Chronic Pain Jose Alvarado MD Jul 19, 2019 07:54
== END 2019-07-17 20:55 | disposition home or self-care (01) ==
LOC: EMR 18:49
DX: G89.29 Other chronic pain (principal); M25.512 Pain in left shoulder; I50.9 Heart failure, unspecified; I11.0 Hypertensive heart disease with heart failure; M19.90 Unspecified osteoarthritis, unspecified site; I69.854 Hemiplegia and hemiparesis following other cerebrovascular disease affecting left non-dominant side; Z85.46 Personal history of malignant neoplasm of prostate; Z88.2 Allergy status to sulfonamides; Z88.6 Allergy status to analgesic agent
CPT/HCPCS: 71045; 93005; 99283

== ENCOUNTER 2019-09-16 14:26 | Emergency (ER) | payer MEDICARE, OTHER ==
[~2019-09-16] VITALS: Ht 175.3 cm; Wt 71.7 kg
[~2019-09-16 14:26] MED LIST changes: +NORCO 5-325 TA1 EACH ORAL; +OMEPRAZOLE20 M2 ORAL; +VOLTAREN100 G1 TP
[2019-09-16 14:33] VITALS: BP 153/86
[2019-09-16] MEDS ORDERED: Ketorolac 30mg Inj IM ONE (15:00)
[2019-09-16] MEDS ORDERED: VOLTAREN100 G1 TP (15:04)
--- NOTE | 2019-09-16 15:04 | Emergency Room Report ---
History of Present Illness General Chief Complaint: Pain Source: Patient Present Illness HPI 74-year-old male with history of chronic pain currently under pain management care here complaining of worsening pain that started today. Patient reports that prior to arrival he took Dilaudid as well as Tylenol 3 at home. Denies any fall or injury. Reports that he has been having this pain for many years and is under the care of pain management. Denies chest pain, shortness of breath, palpitation, or other associated symptoms. Patient is ambulating to the ER with a cane. No neurological or vascular disorder deficits noted. Patient is requesting hydrocodone. I explained to the patient that since patient is under pain management care cannot be given any controlled substance at this time as it. Distribution of pain management by pain management doctor. Patient leaves AGAINST MEDICAL ADVICE before Toradol that was ordered for him given. 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 Review of Systems All Other Systems: negative except mentioned in HPI Physical Exam Vital Signs Date Time Temp Pulse Resp B/P (MAP) Pulse Ox O2 Delivery O2 Flow Rate FiO2 09/16/19 14:33 98.1 69 17 153/86 (108) 94 Room Air Sp02 EP Interpretation: reviewed, normal General Appearance: no apparent distress, alert, GCS 15, non-toxic Head: normocephalic, atraumatic Eyes: bilateral eye normal inspection, bilateral eye PERRL ENT: hearing grossly normal, normal pharynx, no angioedema, normal voice Neck: full range of motion, supple/symm/no masses Respiratory: chest non-tender, lungs clear, normal breath sounds, speaking full sentences Cardiovascular #1: regular rate, rhythm, no edema, no JVD, no murmur Cardiovascular #2: 2+ dorsalis pedis (R), 2+ dorsalis pedis (L) Gastrointestinal: normal bowel sounds, non tender, soft, non-distended, no guarding, no rebound Genitourinary: no CVA tenderness Musculoskeletal: normal inspection, back normal Neurologic: alert, motor strength/tone normal, oriented x3, sensory intact, responsive, speech normal Psychiatric: normal inspection, judgement/insight normal Skin: no rash Lymphatic: no adenopathy Medical Decision Making PA Attestation All diagnoses and treatment plans were reviewed and discussed with my supervising physician Dr. Grullon Diagnostic Impression: Primary Impression: chronic pain Additional Impression: Left against medical advice ER Course 74-year-old male with history of chronic pain currently under pain management care here complaining of worsening pain that started today. Patient reports that prior to arrival he took Dilaudid as well as Tylenol 3 at home. Denies any fall or injury. Reports that he has been having this pain for many years and is under the care of pain management. Denies chest pain, shortness of breath, palpitation, or other associated symptoms. Patient is ambulating to the ER with a cane. No neurological or vascular disorder deficits noted. Patient is requesting hydrocodone. I explained to the patient that since patient is under pain management care cannot be given any controlled substance at this time as it. Distribution of pain management by pain management doctor. Patient leaves AGAINST MEDICAL ADVICE before Toradol that was ordered for him given. Ddx considered but are not limited to: Chronic pain, acute pain, Vital signs: are WNL, pt. is afebrile H&PE are most consistent with: AGAINST MEDICAL ADVICE ORDERS: Voltaren gel however patient left ED INTERVENTIONS: Toradol Patient left AMA Last Vital Signs Date Time Temp Pulse Resp B/P (MAP) Pulse Ox O2 Delivery O2 Flow Rate FiO2 09/16/19 14:33 98.1 69 17 153/86 (108) 94 Room Air Disposition: AGAINST MEDICAL ADVICE Condition: Stable Scripts Diclofenac Sodium (VOLTAREN) 100 Gm Gel..gram. 2 GM TP TID, #100 GM Prov: Alvarez Palmer 09/16/19 Alvarez Palmer Sep 16, 2019 15:04
[2019-09-16 15:06] VITALS: BP 153/86
== END 2019-09-16 15:06 | disposition left against medical advice (07) ==
LOC: EMR 15:02
DX: G89.29 Other chronic pain (principal); I11.0 Hypertensive heart disease with heart failure; I50.9 Heart failure, unspecified; Z85.46 Personal history of malignant neoplasm of prostate; Z86.73 Personal history of transient ischemic attack (TIA), and cerebral infarction without residual deficits; Z88.6 Allergy status to analgesic agent; Z88.2 Allergy status to sulfonamides
CPT/HCPCS: 99281